=== PATIENT | male | born 1965 | race Native Hawaiian/Other Pacific Islander ===

== ENCOUNTER 2017-12-26 11:00 | Emergency (ER) | payer OTHER ==
[~2017-12-26] VITALS: Ht 165.1 cm; Wt 80.3 kg
--- NOTE | ~2017-12-26 | EKG ---
[place] [address] [facility] [address] ELECTROCARDIOGRAM REPORT Name: KATHY GIRON Room #: DEP Laurie#: [id number] Admission: 12/26/17 Attend Phys: Discharge: 12/26/17 Date of : 65 Report #: [id number] THIS REPORT FOR: //name// [facility] ED Test Date: 2017-12-26 Test Time: 11:22:22 Pat Name: KATHY GIRON Department: Room: Gender: Sustain Engineer: aj : 1965 Requested By: Ying Cotton Order Number: [id number] MD: Kamran Ross Measurements Intervals [place] Rate: 81 P: -23 [place]: 185 QRS: 21 QRSD: 103 T: 1 QT: 363 QTc: 422 Interpretive Statements Sinus rhythm Baseline wander in lead(s) V3,V4 Compared to ECG 01/08/2017 23:33:51 No significant changes Electronically Signed On 12-27-2017 8:44:35 CDT by Kamran Ross [email or web address] <ELECTRONICALLY SIGNED> By: Kamran Ross MD, [facility] 12/27/17 0844 21 21 Kamran Ross MD, [facility] /EPI
[~2017-12-26 11:00] MED LIST: BACTRIM DS TAB1 EACH PO; HIGH BP; MOBIC15 MG PO; NORCO 5-325 TA1 EACH PO
[2017-12-26] MEDS ORDERED: SYNTHROID50 MCG PO (11:41)
[2017-12-26] MEDS ORDERED: AMLODIPINE-BEN1 EAC4 PO (11:41)
[2017-12-26] MEDS ORDERED: [UNRECOGNIZED DRUG - REMARK] PO (11:44)
[2017-12-26 11:54] LABS: URINE BILIRUBIN NEGATIVE (Negative); URINE BLOOD TRACE (Negative); URINE CLARITY CLEAR; URINE COLOR YELLOW; URINE GLUCOSE-RANDOM* NEGATIVE (Negative); URINE KETONES NEGATIVE (Negative); URINE LEUKOCYTES-REFLEX NEGATIVE (Negative); URINE NITRITE-REFLEX NEGATIVE (Negative); URINE PROTEIN (DIPSTICK) NEGATIVE (Negative); URINE SPECIFIC GRAVITY 1.015 (1.005-1.035); URINE UROBILINOGEN 0.2 E.U./dl (0.2-1.0)
[2017-12-26 11:55] LABS: ABSOLUTE NEUTROPHILS 7.1 thou/uL (1.4-8.2); BASOPHILS 0.4 % (0.0-2.0); EOSINOPHILS 0.9 % (0.0-3.0); HEMATOCRIT 44.5 % (42.0-52.0); HEMOGLOBIN 15.2 gm/dL (14.0-18.0); LYMPHOCYTES 10.7 % (24.0-44.0); MCH 32.4 pg (26.0-34.0); MCHC 34.2 g/dL (28.0-37.0); MCV 94.6 fL (80.0-100.0); MONOCYTES 4.6 % (1.0-8.0); PLATELET COUNT 224 thou/uL (150-400); POLYS 83.4 % (36.0-66.0); RDW 14.2 % (10.5-14.5); WBC 8.5 thou/uL (4.0-11.0)
[2017-12-26 11:58] LABS: ANION GAP 6 mmol/L (7-16); BUN 18 mg/dL (7-18); CALCIUM 8.7 mg/dL (8.5-10.1); CHLORIDE 103 mmol/L (98-107); CO2 29 mmol/L (21-32); CREATININE 1.1 mg/dL (0.7-1.3); GLUCOSE 105 mg/dL (74-106); POTASSIUM 4.4 mmol/L (3.5-5.1); SODIUM 138 mmol/L (136-145)
[2017-12-26 12:07] LABS: ALBUMIN 4.1 g/dL (3.4-5.0); DIRECT BILIRUBIN 0.2 mg/dL (<0.1-0.3); LIPASE 197 U/L (73-393); SGOT 473 U/L (15-37); SGPT 503 U/L (30-65); TOTAL BILIRUBIN 0.6 mg/dL (<0.1-1.0); TROPONIN-I < 0.04 ng/mL (<0.06)
[2017-12-26] MEDS ORDERED: ULTRAM 50MG TAB50 MG PO (15:00)
[2017-12-26 15:24] VITALS: BP 142/97
== END 2017-12-26 15:10 | disposition home or self-care (01) ==
LOC: ER 11:00
PROVIDERS: Emergency Medicine
DX: R74.8 Abnormal levels of other serum enzymes (principal); M79.1 Myalgia; R10.9 Unspecified abdominal pain; I10 Essential (primary) hypertension; Z88.0 Allergy status to penicillin; Z88.5 Allergy status to narcotic agent

== ENCOUNTER → 2018-02-13 | Outpatient (CLI) | payer OTHER ==
[~2018-02-13] MED LIST changes: +AMLODIPINE-BEN1 EAC4 PO; +SYNTHROID50 MCG PO; +ULTRAM 50MG TAB50 MG PO; +[UNRECOGNIZED DRUG - REMARK] PO
== END ==
LOC: MRI 02-08 06:21
DX: J32.0 Chronic maxillary sinusitis (principal); J34.1 Cyst and mucocele of nose and nasal sinus

== ENCOUNTER → 2018-03-08 | Outpatient (CLI) | payer OTHER | LOC: CAT 08:05 | DX: J32.2 Chronic ethmoidal sinusitis (principal); J34.1 Cyst and mucocele of nose and nasal sinus; H02.844 Edema of left upper eyelid ==

== ENCOUNTER 2018-10-06 23:03 | Emergency (ER) | payer OTHER ==
[~2018-10-06] VITALS: Ht 165.1 cm; Wt 82.6 kg
[2018-10-06 23:27] LABS: HEMATOCRIT 43.9 % (42.0-52.0); HEMOGLOBIN 14.9 gm/dL (14.0-18.0); MCH 31.7 pg (26.0-34.0); MCV 93.2 fL (80.0-100.0); RBC 4.71 mil/uL (4.50-6.00); RDW 14.4 % (10.5-14.5); WBC 9.5 thou/uL (4.0-11.0)
[2018-10-06 23:35] LABS: ANION GAP 7 mmol/L (7-16); BUN 18 mg/dL (7-18); CALCIUM 8.9 mg/dL (8.5-10.1); CHLORIDE 104 mmol/L (98-107); CO2 30 mmol/L (21-32); CREATININE 0.9 mg/dL (0.7-1.3); GLUCOSE 106 mg/dL (74-106); POTASSIUM 3.8 mmol/L (3.5-5.1); SODIUM 141 mmol/L (136-145)
[2018-10-06 23:44] LABS: ALBUMIN 3.8 g/dL (3.4-5.0); LIPASE 158 U/L (73-393); SGOT 57 U/L (15-37); SGPT 91 U/L (30-65); TOTAL BILIRUBIN 0.3 mg/dL (<0.1-1.0); TOTAL PROTEIN 7.6 g/dL (6.4-8.2); TROPONIN-I <0.06 ng/mL (<0.06)
[2018-10-07 01:36] LABS: URINE BILIRUBIN NEGATIVE (Negative); URINE BLOOD NEGATIVE (Negative); URINE CLARITY CLEAR; URINE COLOR YELLOW; URINE GLUCOSE-RANDOM* NEGATIVE (Negative); URINE KETONES NEGATIVE (Negative); URINE LEUKOCYTES-REFLEX NEGATIVE (Negative); URINE NITRITE-REFLEX NEGATIVE (Negative); URINE PROTEIN (DIPSTICK) NEGATIVE (Negative); URINE SPECIFIC GRAVITY 1.015 (1.005-1.035); URINE UROBILINOGEN 0.2 E.U./dl (0.2-1.0)
[2018-10-07] MEDS ORDERED: VALIUM5 MG PO (03:11)
[2018-10-07 03:29] VITALS: BP 115/81
--- NOTE | 2018-10-07 08:43 | EKG ---
[address] [address] ELECTROCARDIOGRAM REPORT Name: KATHY GIRON Room #: DEP Laurie#: [id number] Admission: 10/06/18 Attend Phys: Discharge: 10/07/18 Date of : 65 Report #: [id number] THIS REPORT FOR: //name// [facility] ED Test Date: 2018-10-06 Test Time: 23:13:11 Pat Name: KATHY GIRON Department: Room: Gender: Services Advisor: OSMAN : 1965 Requested By: Huma Vargas Order Number: [id number] MD: Kamran Ross Measurements Intervals [place] Rate: 88 P: 16 [place]: 181 QRS: 19 QRSD: 102 T: 13 QT: 351 QTc: 425 Interpretive Statements Sinus rhythm Compared to ECG 12/26/2017 11:22:22 No significant changes Electronically Signed On 10-07-2018 8:42:56 PERMASTONE MECHANIC by Kamran Ross [email or web address] <ELECTRONICALLY SIGNED> By: Kamran Ross MD, [facility] 10/07/18 0842 2313 2313 Kamran Ross MD, FACC /EPI
== END 2018-10-07 03:35 | disposition home or self-care (01) ==
LOC: ER 23:03
PROVIDERS: Student in an Organized Health Care Education/Training Program
DX: M62.838 Other muscle spasm (principal); R10.13 Epigastric pain; R42 Dizziness and giddiness; I10 Essential (primary) hypertension; Z88.0 Allergy status to penicillin; Z88.6 Allergy status to analgesic agent

== ENCOUNTER 2018-10-20 10:16 | Emergency (ER) | payer OTHER ==
[~2018-10-20] VITALS: Ht 165.1 cm; Wt 83.9 kg
[~2018-10-20 10:16] MED LIST changes: +VALIUM5 MG PO
[2018-10-20 10:48] LABS: URINE BILIRUBIN NEGATIVE (Negative); URINE BLOOD NEGATIVE (Negative); URINE CLARITY CLEAR; URINE COLOR YELLOW; URINE GLUCOSE-RANDOM* NEGATIVE (Negative); URINE KETONES NEGATIVE (Negative); URINE LEUKOCYTES-REFLEX NEGATIVE (Negative); URINE NITRITE-REFLEX NEGATIVE (Negative); URINE PROTEIN (DIPSTICK) NEGATIVE (Negative); URINE SPECIFIC GRAVITY <= 1.005 (1.005-1.035); URINE UROBILINOGEN 0.2 E.U./dl (0.2-1.0)
[2018-10-20 10:49] LABS: ABSOLUTE NEUTROPHILS 2.5 thou/uL (1.4-8.2); EOSINOPHILS 4.1 % (0.0-3.0); HEMATOCRIT 43.8 % (42.0-52.0); HEMOGLOBIN 14.9 gm/dL (14.0-18.0); LYMPHOCYTES 42.6 % (24.0-44.0); MCV 94.1 fL (80.0-100.0); MONOCYTES 8.2 % (1.0-8.0); PLATELET COUNT 247 thou/uL (150-400); POLYS 44.1 % (36.0-66.0); RBC 4.65 mil/uL (4.50-6.00); RDW 14.4 % (10.5-14.5); WBC 5.7 thou/uL (4.0-11.0)
[2018-10-20 10:54] LABS: ANION GAP 7 mmol/L (7-16); BUN 21 mg/dL (7-18); CALCIUM 9.2 mg/dL (8.5-10.1); CHLORIDE 105 mmol/L (98-107); CO2 27 mmol/L (21-32); CREATININE 0.9 mg/dL (0.7-1.3); GLUCOSE 123 mg/dL (74-106); POTASSIUM 4.2 mmol/L (3.5-5.1); SODIUM 139 mmol/L (136-145)
[2018-10-20 11:03] LABS: ALBUMIN 3.8 g/dL (3.4-5.0); SGOT 31 U/L (15-37); SGPT 68 U/L (30-65); TOTAL BILIRUBIN 0.3 mg/dL (<0.1-1.0); TOTAL PROTEIN 7.6 g/dL (6.4-8.2); TROPONIN-I <0.06 ng/mL (<0.06)
[2018-10-20] MEDS ORDERED: ANTIVERT25 MG PO (13:51)
[2018-10-20 14:07] VITALS: BP 128/78
--- NOTE | 2018-10-20 22:10 | EKG ---
[address] [address] ELECTROCARDIOGRAM REPORT Name: KATHY GIRON Room #: DEP Laurie#: [id number] ������������������ Admission: 10/20/18 ������������������ Attend Phys: Discharge: 10/20/18 ������������������ Date of : 65 Report #: [id number] ����������������������������������������������������������������� [id number] THIS REPORT FOR: //name// [facility] ED Test Date: 2018-10-20 Test Time: 10:40:21 Pat Name: KATHY GIRON Department: Room: Gender: Digital Data Analyst: : 1965 Requested By: Josefina Valdez Order Number: [id number] MD: Faustino Calix Measurements Intervals [place] Rate: 74 P: -8 [place]: 184 QRS: 20 QRSD: 100 T: 23 QT: 394 QTc: 438 Interpretive Statements Sinus rhythm Compared to ECG 10/06/2018 23:13:11 No significant changes Electronically Signed On 10-20-2018 22:10:00 BOOKMOBILE CLERK by Faustino Calix [email or web address] ��������������������������������������������� <ELECTRONICALLY SIGNED> ���������������������������������������� By: Faustino Calix MD ��������������������������������������������� 10/20/18 2210 39 1040 Faustino Calix MD /[facility]
== END 2018-10-20 14:12 | disposition home or self-care (01) ==
LOC: ER 10:16
PROVIDERS: Nurse Practitioner Family
DX: R42 Dizziness and giddiness (principal); I10 Essential (primary) hypertension; Z88.5 Allergy status to narcotic agent; Z88.0 Allergy status to penicillin

== ENCOUNTER 2018-11-18 06:13 | Emergency (ER) | payer BC, OTHER ==
[~2018-11-18] VITALS: Ht 165.1 cm; Wt 86.2 kg
[~2018-11-18 06:13] MED LIST changes: +ANTIVERT25 MG PO
[2018-11-18 07:12] LABS: ABSOLUTE NEUTROPHILS 4.6 thou/uL (1.4-8.2); BASOPHILS 0.6 % (0.0-2.0); EOSINOPHILS 2.6 % (0.0-3.0); HEMATOCRIT 42.3 % (42.0-52.0); HEMOGLOBIN 14.4 gm/dL (14.0-18.0); LYMPHOCYTES 18.7 % (24.0-44.0); MCH 32.1 pg (26.0-34.0); MCHC 34.1 g/dL (28.0-37.0); MCV 94.2 fL (80.0-100.0); MONOCYTES 9.3 % (1.0-8.0); PLATELET COUNT 258 thou/uL (150-400); POLYS 68.8 % (36.0-66.0); RBC 4.49 mil/uL (4.50-6.00); WBC 6.7 thou/uL (4.0-11.0)
[2018-11-18 07:19] LABS: ANION GAP 8 mmol/L (7-16); BUN 17 mg/dL (7-18); CHLORIDE 102 mmol/L (98-107); CO2 27 mmol/L (21-32); CREATININE 0.9 mg/dL (0.7-1.3); GLUCOSE 120 mg/dL (74-106); SODIUM 137 mmol/L (136-145)
[2018-11-18 07:30] LABS: ALBUMIN 3.7 g/dL (3.4-5.0); DIRECT BILIRUBIN < 0.1 mg/dL (<0.1-0.3); LIPASE 149 U/L (73-393); SGOT 45 U/L (15-37); SGPT 76 U/L (30-65); TOTAL BILIRUBIN 0.4 mg/dL (<0.1-1.0); TOTAL PROTEIN 7.4 g/dL (6.4-8.2); TROPONIN-I <0.06 ng/mL (<0.06)
[2018-11-18] MEDS ORDERED: NORFLEX100 MG PO (08:06)
[2018-11-18] MEDS ORDERED: MOBIC7.5 MG PO (08:06)
[2018-11-18 08:28] VITALS: BP 120/83
--- NOTE | 2018-11-18 17:03 | EKG ---
[address] [address] ELECTROCARDIOGRAM REPORT Name: KATHY GIRON Room #: DEP Laurie#: [id number] ������������������ Admission: 11/18/18 ������������������ Attend Phys: Discharge: 11/18/18 ������������������ Date of : 65 Report #: [id number] ����������������������������������������������������������������� [id number] THIS REPORT FOR: //name// [facility] ED Test Date: 2018-11-18 Test Time: 06:20:20 Pat Name: KATHY GIRON Department: Room: Gender: Energy Consultant: MARLEY : 1965 Requested By: Kathy Bose Order Number: [id number] MD: Kamran Ross Measurements Intervals [place] Rate: 79 P: -2 [place]: 179 QRS: 21 QRSD: 99 T: 29 QT: 376 QTc: 432 Interpretive Statements Sinus rhythm Normal tracing Compared to ECG 10/20/2018 10:40:21 No significant changes Electronically Signed On 11-18-2018 17:03:18 CDT by Kamran Ross [email or web address] ��������������������������������������������� <ELECTRONICALLY SIGNED> ���������������������������������������� By: Kamran Ross MD, [facility] ��������������������������������������������� 11/18/18 1703 0620 9 Kamran Ross MD, FACC /EPI
== END 2018-11-18 08:39 | disposition home or self-care (01) ==
LOC: ER 06:13
PROVIDERS: Emergency Medicine
DX: M79.10 Myalgia, unspecified site (principal); R07.89 Other chest pain; I10 Essential (primary) hypertension; Z88.0 Allergy status to penicillin; Z88.5 Allergy status to narcotic agent

== ENCOUNTER 2021-01-04 08:00 | Emergency (ER) | payer BC, OTHER ==
[~2021-01-04] VITALS: Ht 165.1 cm; Wt 80.7 kg
[~2021-01-04 08:00] MED LIST changes: +MOBIC7.5 MG PO; +NORFLEX100 MG PO
[2021-01-04] MEDS ORDERED: OMEPRAZOLE 20 M20 M1 PO (08:21)
[2021-01-04 08:27] LABS: ABSOLUTE NEUTROPHILS 2.1 thou/uL (1.4-8.2); BASOPHILS 0.8 % (0.0-2.0); EOSINOPHILS 4.1 % (0.0-3.0); HEMATOCRIT 42.3 % (42.0-52.0); HEMOGLOBIN 14.3 gm/dL (14.0-18.0); LYMPHOCYTES 45.8 % (24.0-44.0); MCH 32.1 pg (26.0-34.0); MCHC 33.7 g/dL (28.0-37.0); MCV 95.4 fL (80.0-100.0); MONOCYTES 10.9 % (1.0-8.0); PLATELET COUNT 224 thou/uL (150-400); POLYS 38.4 % (36.0-66.0); RBC 4.43 mil/uL (4.50-6.00); RDW 14.3 % (10.5-14.5); WBC 5.4 thou/uL (4.0-11.0)
--- NOTE | 2021-01-04 08:32 | EKG ---
[address] [address] ELECTROCARDIOGRAM REPORT Name: KATHY GIRON Room #: PRE M.R.#: [id number] Admission: Attend Phys: Discharge: Date of : 65 Report #: [id number] [facility] ED Test Date: 2021-01-04 Test Time: 08:14:31 Pat Name: KATHY GIRON Department: Room: Gender: Supervisor Real Estate Office: LINDEN : 1965 Requested By: Ida Dalal Order Number: [id number] MD: Kamran Ross Measurements Intervals [place] Rate: 72 P: 0 [place]: 186 QRS: 5 QRSD: 103 T: 3 QT: 400 QTc: 438 Interpretive Statements Sinus rhythm Normal tracing Compared to ECG 11/18/2018 06:20:20 No significant changes Electronically Signed On 01-04-2021 8:32:26 CDT by Kamran Ross [email or web address] <ELECTRONICALLY SIGNED> By: Kamran Ross MD, [facility] 01/04/21831 3 3 Kamran Ross MD, FACC /EPI
[2021-01-04 08:33] LABS: ANION GAP 9 mmol/L (7-16); BUN 14 mg/dL (7-18); CALCIUM 8.7 mg/dL (8.5-10.1); CHLORIDE 107 mmol/L (98-107); CO2 29 mmol/L (21-32); GLUCOSE 120 mg/dL (74-106); POTASSIUM 3.6 mmol/L (3.5-5.1); SODIUM 145 mmol/L (136-145)
[2021-01-04 08:43] LABS: ALBUMIN 3.5 g/dL (3.4-5.0); SGOT 33 U/L (15-37); SGPT 59 U/L (16-63); TOTAL BILIRUBIN 0.3 mg/dL (0.2-1.0); TOTAL PROTEIN 7.3 g/dL (6.4-8.2); TROPONIN-I <0.06 ng/mL (<0.06)
[2021-01-04 09:04] LABS: URINE BILIRUBIN NEGATIVE (Negative); URINE BLOOD NEGATIVE (Negative); URINE CLARITY CLEAR; URINE COLOR YELLOW; URINE GLUCOSE-RANDOM* NEGATIVE (Negative); URINE KETONES NEGATIVE (Negative); URINE LEUKOCYTES-REFLEX NEGATIVE (Negative); URINE NITRITE-REFLEX NEGATIVE (Negative); URINE PROTEIN (DIPSTICK) NEGATIVE (Negative); URINE UROBILINOGEN 0.2 E.U./dl (0.2-1.0)
[2021-01-04 09:24] LABS: AMP/METHAMP Negative (Negative); BARBITURATES Negative (Negative); BENZODIAZEPINES Negative (Negative); COCAINE Negative (Negative); METHADONE Negative (Negative); OPIATES Negative (Negative); PCP Negative (Negative)
[2021-01-04] MEDS ORDERED: MECLIZINE HCL25 M1 PO (12:24)
[2021-01-04 12:49] VITALS: BP 144/93
== END 2021-01-04 12:50 | disposition home or self-care (01) ==
LOC: ER 08:00
PROVIDERS: Emergency Medicine
DX: R42 Dizziness and giddiness (principal); R55 Syncope and collapse; I10 Essential (primary) hypertension; Z79.899 Other long term (current) drug therapy; Z88.0 Allergy status to penicillin; Z88.5 Allergy status to narcotic agent; Z20.822 Contact with and (suspected) exposure to COVID-19